=== PATIENT | female | born 1945 | race Caucasian/White ===

== ENCOUNTER → 2016-10-06 | Day surgery (SDC) | payer MEDICARE ==
[~2016-10-06] VITALS: Ht 167.6 cm; Wt 64.0 kg
[~2016-10-06] MED LIST: ALEN70TA2 PO; LEVO75TA4 PO; Sodium Chloride LOK Flush 10 mL Syringe IV PRN; fentaNYL-PF 50 mCg/mL 2 mL Inj IVPUSH PRN
[2016-10-06 11:25] VITALS: BP 129/86; PULSE 60; RESP 17; O2SAT 98
[2016-10-06] MEDS: 0.9% Sodium Chloride 1,000 ML IV SCH ×2 (12:02→12:08)
[2016-10-06 12:31] VITALS: BP 121/69; PULSE 61; RESP 13; O2SAT 96
[2016-10-06 12:42] VITALS: BP 109/67; PULSE 59; RESP 13; O2SAT 96
[2016-10-06 12:52] VITALS: BP 122/69; PULSE 57; RESP 15; O2SAT 99
--- NOTE | 2016-10-06 13:56 | ENDO ---
[address] [address] ENDOSCOPY PROCEDURE PATIENT: GARRETT MCGUIRE : 1945 MR#: [id number] ADMIT: 10/06/2016 JOB ID: [id number] DATE: 10/06/2016 PROCEDURE: Colonoscopy. INDICATION: Patient with personal history of colon polyps. Patient's ASA classification is two. Mallampati score is two. MEDICATIONS: Versed 4 mg, fentanyl 100 mcg. INSTRUMENT USED: PCF Q 180 AL. PREPARATION QUALITY: Fair. PROCEDURE DETAILS: After informed consent was obtained, the patient was brought into the GI suite, where she was placed on oxygen via nasal cannula and monitored with continuous pulse oximeter, telemetry, and blood pressure monitoring. A time-out was performed. Then, she was placed in the left lateral decubitus position and medications were administered for sedation. A digital rectal exam was performed which was unremarkable. The colonoscope was then inserted into the rectum and advanced under direct visualization to the cecum, which was identified by the presence of the ileocecal valve and appendiceal orifice. Once the sigmoid was reached, the colonoscope was withdrawn back to the rectum as the mucosa and lumen were examined. In the rectum, retroflexion was performed. Following retroflexion, the remaining air in the rectum was suctioned and the procedure was completed. FINDINGS: Normal exam from rectum to cecum. IMPRESSION: Normal colonoscopy. RECOMMENDATIONS: Repeat colonoscopy in five years, sooner symptoms should dictate. COMPLICATIONS: None. ESTIMATED BLOOD LOSS: Zero.
== END | disposition home or self-care (01) ==
LOC: END 00:15
PROVIDERS: ATTEND Internal Medicine Gastroenterology
DX: Z12.11 Encounter for screening for malignant neoplasm of colon (principal); Z86.010 Personal history of colon polyps
CPT/HCPCS: 99153; G0105; G0500; J2250; J3010; J7030